=== PATIENT | male | born 1990 | race Caucasian/White ===

== ENCOUNTER 2018-11-21 18:50 | Emergency (ER) | payer BC ==
[~2018-11-21] VITALS: Ht 162.6 cm; Wt 72.6 kg
[2018-11-21 18:59] VITALS: Ht 162.6 cm; Wt 72.6 kg
[2018-11-21 21:47] VITALS: BP 112/63
== END 2018-11-21 21:47 | disposition home or self-care (01) ==
LOC: ED 18:50
DX: F41.9 Anxiety disorder, unspecified (principal); R07.89 Other chest pain